=== PATIENT | male | born 1995 | race Caucasian/White ===

== ENCOUNTER → 2022-07-12 | Outpatient (CLI) | payer OTHER | LOC: M WUC 15:20 | PROVIDERS: ATTEND Physician Assistant | DX: S63.8X2A Sprain of other part of left wrist and hand, initial encounter (principal); X58.XXXA Exposure to other specified factors, initial encounter; Y92.89 Other specified places as the place of occurrence of the external cause ==

== ENCOUNTER → 2022-07-19 | Outpatient (REF) | payer OTHER ==
[2022-07-19 19:40] LABS: GC DNA AMPLIFICATION NEGATIVE (NEGATIVE)
== END ==
LOC: M LAB REF 16:41
PROVIDERS: ATTEND Physician Assistant
DX: R30.0 Dysuria (principal); Z20.2 Contact with and (suspected) exposure to infections with a predominantly sexual mode of transmission

== ENCOUNTER 2022-08-05 11:09 | Emergency (ER) | payer OTHER ==
[~2022-08-05] VITALS: Ht 175.3 cm; Wt 74.0 kg
[2022-08-05] MEDS ORDERED: IBUPROFEN 600MG TAB PO ONE (12:00)
[2022-08-05] MEDS ORDERED: IBUPROFEN 100MG 5ML ORAL SUSP UDC PO ONE (12:00)
[2022-08-05] MEDS ORDERED: HYDR-3713 PO (12:23)
[2022-08-05 12:33] VITALS: BP 148/88
== END 2022-08-05 12:35 | disposition home or self-care (01) ==
LOC: M ED 11:09
DX: S43.52XA Sprain of left acromioclavicular joint, initial encounter (principal); W22.09XA Striking against other stationary object, initial encounter; Y92.330 Ice skating rink (indoor) (outdoor) as the place of occurrence of the external cause; Y93.22 Activity, ice hockey; Y99.8 Other external cause status

== ENCOUNTER → 2023-05-11 | Outpatient (CLI) | payer BC ==
[~2023-05-11] MED LIST: HYDR-3713 PO
== END ==
LOC: M SOG 14:24
PROVIDERS: ATTEND Orthopaedic Surgery
DX: S43.102S Unspecified dislocation of left acromioclavicular joint, sequela (principal); Y93.9 Activity, unspecified; Y92.9 Unspecified place or not applicable

== ENCOUNTER → 2024-05-30 | Outpatient (CLI) | LOC: M SOG 08:44 | PROVIDERS: ATTEND Physician Assistant | DX: S43.102A Unspecified dislocation of left acromioclavicular joint, initial encounter (principal); W18.30XA Fall on same level, unspecified, initial encounter; Y92.009 Unspecified place in unspecified non-institutional (private) residence as the place of occurrence of the external cause ==

== ENCOUNTER → 2024-06-24 | Outpatient (CLI) | LOC: M SOG 07:55 | PROVIDERS: ATTEND Physician Assistant | DX: S43.102A Unspecified dislocation of left acromioclavicular joint, initial encounter (principal); W18.30XA Fall on same level, unspecified, initial encounter; Y92.009 Unspecified place in unspecified non-institutional (private) residence as the place of occurrence of the external cause ==

== ENCOUNTER 2025-03-02 20:29 | Emergency (ER) | payer OTHER ==
[~2025-03-02] VITALS: Ht 175.3 cm; Wt 81.8 kg
[2025-03-02 22:54] VITALS: BP 144/87; TEMP 98.6; O2SAT 99
[2025-03-03] MEDS ORDERED: AMOX875T2 PO (00:43)
[2025-03-03] MEDS: TETANUS/DIPHTH/ACEL. PERTUSSIS 0.5 ML SYR IM.IMMUN ONE (00:53)
== END 2025-03-03 01:21 | disposition home or self-care (01) ==
LOC: M ED 20:29
DX: S71.132A Puncture wound without foreign body, left thigh, initial encounter (principal); W54.0XXA Bitten by dog, initial encounter; Y92.9 Unspecified place or not applicable; Y93.9 Activity, unspecified; Y99.9 Unspecified external cause status; Z23 Encounter for immunization; Z79.1 Long term (current) use of non-steroidal anti-inflammatories (NSAID); Z79.2 Long term (current) use of antibiotics